=== PATIENT | female | born 2000 | race Caucasian/White ===

== ENCOUNTER 2021-01-28 13:17 | Emergency (ER) | payer BC, OTHER ==
--- NOTE | 2021-01-28 13:49 | EDPHYS ---
Physician Documentation [facility] Name: Peace Ring Age: 20 yrs Sex: Female : 2000 Arrival Date: 01/28/2021 Time: 13:21 Bed 11 Private MD: ED Physician Kory Ham HPI: 01/28 13:49 This 20 yrs old Female presents to ER via Ambulatory with complaints of Jaw pm1 Pain. 13:49 The patient presents with pain, Right jaw area. The problem is located in the lower pm1 right third molar. Onset: The symptoms/episode began/occurred 3 day(s) ago. Duration: The symptoms are continuous. Modifying factors: The symptoms are alleviated by nothing, the symptoms are aggravated by chewing. Associated signs and symptoms: Pertinent positives: Ear pain, Pertinent negatives: fever, inability to eat, nausea, swelling, vomiting. Severity of symptoms: in the emergency department the symptoms are actually worse. Seen at [facility] clinic and was diagnosed with TMJ. Discharged home with steroids and NSAIDs. But reports no improvement in symptoms with medications prescribed. 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/07/2021 kg Historical: - Allergies: 13:28 No Known Allergies; kg - Home Meds: 13:28 Adderall XR 15 mg Oral cp24 1 cap once daily [Active]; hydroxyzine HCl 25 mg Oral tab 1 kg tab [Active]; meloxicam 15 mg oral tab 1 tab once daily [Active]; methylprednisolone 4 mg Oral tab 1 tab once daily [Active]; 13:30 norgestimate-ethinyl estradiol 0.18/0.215/0.25 mg-35 mcg (28) oral tab [Active]; kg - PMHx: 13:30 Anxiety; Depression; polycystic ovarian syndrome; Dyslipidemia; kg - PSHx: 13:30 Hernia repair; kg 13:32 Tubes in ears; Tonsillectomy; kg - Immunization history:: Adult Immunizations not up to date, Client reports having NOT received the Covid vaccine. - Social history:: Smoking status: Reported history of juuling and/or vaping. Patient uses alcohol, occasionally. ROS: 13:49 Constitutional: Negative for fever, chills, and weight loss. pm1 13:49 Neck: Negative for injury, pain, and swelling, Cardiovascular: Negative for chest pain, palpitations, and edema, Respiratory: Negative for shortness of breath, cough, wheezing, and pleuritic chest pain, Abdomen/GI: Negative for abdominal pain, nausea, vomiting, diarrhea, and constipation, MS/Extremity: Negative for injury and deformity, Skin: Negative for injury, rash, and discoloration, Neuro: Negative for headache, weakness, numbness, tingling, and seizure. 13:49 ENT: Positive for dental pain, ear pain, Negative for sore throat, difficulty swallowing, difficulty handling secretions, hoarseness. 13:49 All other systems are negative. Exam: 13:49 Constitutional: This is a well developed, well nourished patient who is awake, alert, pm1 and in no acute distress. Head/Face: Normocephalic, atraumatic. 13:49 Skin: Warm, dry with normal turgor. Normal color with no rashes, no lesions, and no evidence of cellulitis. MS/ Extremity: Pulses equal, no cyanosis. Neurovascular intact. Full, normal range of motion. 13:49 Eyes: Exam is negative for acute changes, Extraocular movements: no acute changes, Conjunctiva: no acute changes, no injection. 13:49 ENT: External ear(s): are unremarkable, Ear canal(s): are normal, TM's: are normal, Mouth: Lips: normal, moist, Oral mucosa: normal, pink and intact, moist, Gums: normal with healthy appearance, No trismus present, Dental exam: abscess, is not appreciated, dental caries, that is moderate, specifically in the lower left third molar (#17) and lower right third molar (#32), pain, specifically in the lower right third molar (#32). 13:49 Neck: Lymph nodes: lymphadenopathy is appreciated, anterior cervical nodes, Right side. 13:49 Cardiovascular: Exam negative for acute changes, Rate: normal, Rhythm: regular, Pulses: no pulse deficits are appreciated. 13:49 Respiratory: Exam negative for acute changes, respiratory distress, shortness of breath. 13:49 Neuro: Exam negative for acute changes, Orientation: is normal, Mentation: is normal, Motor: is normal, moves all fours. Vital Signs: 13:25 BP 121 / 75; Pulse 87; Resp 20; Temp 98.1; Pulse Ox 100% on R/A; Weight 119.29 kg (R); kg Height 5 ft. 2 in. (157.48 cm) (R); Pain 6/10; 13:41 BP 118 / 78; Pulse 82; Resp 18; Pulse Ox 100% ; ch5 13:25 Body Mass Index 48.10 (119.29 kg, 157.48 cm) kg MDM: 13:36 Patient medically screened. pm1 13:47 Data reviewed: vital signs. Data interpreted: Pulse oximetry: on room air is 100 %. pm1 Interpretation: normal. Counseling: I had a detailed discussion with the patient and/or guardian regarding: the historical points, exam findings, and any diagnostic results supporting the discharge/admit diagnosis, the need for outpatient follow up, for definitive care, a dentist, to return to the emergency department if symptoms worsen or persist or if there are any questions or concerns that arise at home. 13:52 ED course: PMPaware reviewed. pm1 Administered Medications: 13:48 Drug: HYDROcodone-acetaminophen 5 mg-325 mg 1 tabs Route: PO; ch5 Disposition: 22:24 Co-signature as Attending Physician, Kory Ham MD. rn Disposition Summary: 01/28/21 13:48 Discharge Ordered Location: Home pm1 Problem: new pm1 Symptoms: have improved pm1 Condition: Stable pm1 Diagnosis - Dental pain pm1 - Dental caries, unspecified pm1 Followup: pm1 - With: Emergency Department - When: As needed - Reason: Worsening of condition Followup: pm1 - With: Private Physician - When: 2 - 3 days - Reason: Recheck today's complaints, Continuance of care, Re-evaluation by your physician Discharge Instructions: - Discharge Summary Sheet pm1 - Dental Pain pm1 Forms: - Medication Reconciliation Form pm1 - Thank You Letter pm1 - Antibiotic Education pm1 - Prescription Opioid Use pm1 - Work release form pm1 Prescriptions: - acetaminophen-codeine 300-15 mg Oral tablet - take 1 tablet by ORAL route every 6 hours As needed as needed; 12 tablet; pm1 Refills: 0, Product Selection Permitted - Amoxicillin 500 mg Oral Capsule - take 1 capsule by ORAL route every 8 hours for 10 days; 30 tablet; Refills: 0, pm1 Product Selection Permitted Signatures: Kory Ham MD MD rn Marinas, Patrick, NP 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
--- NOTE | 2021-01-28 13:49 | ER ---
Nurse's Notes [facility] Name: Peace Ring Age: 20 yrs Sex: Female : 2000 Arrival Date: 01/28/2021 Time: 13:21 Bed 11 Private MD: Diagnosis: Dental pain;Dental caries, unspecified Presentation: 01/28 13:25 Chief complaint: Patient states: Right sided jaw pain x 3 days. Saw her PCP and was kg told its TMJ started her on methylprednisolone and naproxen. Pt stated it hasn't helped and unable to sleep at night.. Coronavirus screen: Vaccine status: Patient reports being unvaccinated. Client denies travel out of the [place] in the last 14 days. At this time, the client does not indicate any symptoms associated with coronavirus-19. Ebola Screen: Patient negative for fever greater than or equal to 101.5 degrees Fahrenheit, and additional compatible Ebola Virus Disease symptoms Patient denies exposure to infectious person. Patient denies travel to an Ebola-affected area in the 21 days before illness onset. Initial Sepsis Screen: Does the patient meet any 2 criteria? No. Patient's initial sepsis screen is negative. Does the patient have a suspected source of infection? No. Patient's initial sepsis screen is negative. Risk Assessment: Do you want to hurt yourself or someone else? Patient reports no desire to harm self or others. Onset of symptoms was January 25, 2021. 13:25 Method Of Arrival: Ambulatory kg 13:25 Acuity: NAVEED 4 kg Triage Assessment: 13:32 General: Appears in no apparent distress. Behavior is calm, cooperative, appropriate kg for age, quiet. Pain: Complains of pain in Right side of Jaw. 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 kg Historical: - Allergies: 13:28 No Known Allergies; kg - Home Meds: 13:28 Adderall XR 15 mg Oral cp24 1 cap once daily [Active]; hydroxyzine HCl 25 mg Oral tab 1 kg tab [Active]; meloxicam 15 mg oral tab 1 tab once daily [Active]; methylprednisolone 4 mg Oral tab 1 tab once daily [Active]; 13:30 norgestimate-ethinyl estradiol 0.18/0.215/0.25 mg-35 mcg (28) oral tab [Active]; kg - PMHx: 13:30 Anxiety; Depression; polycystic ovarian syndrome; Dyslipidemia; kg - PSHx: 13:30 Hernia repair; kg 13:32 Tubes in ears; Tonsillectomy; kg - Immunization history:: Adult Immunizations not up to date, Client reports having NOT received the Covid vaccine. - Social history:: Smoking status: Reported history of juuling and/or vaping. Patient uses alcohol, occasionally. Screenin:33 Abuse screen: Denies threats or abuse. Denies injuries from another. Nutritional kg screening: No deficits noted. Tuberculosis screening: No symptoms or risk factors identified. Fall Risk None identified. Vital Signs: 13:25 BP 121 / 75; Pulse 87; Resp 20; Temp 98.1; Pulse Ox 100% on R/A; Weight 119.29 kg (R); kg Height 5 ft. 2 in. (157.48 cm) (R); Pain 6/10; 13:41 BP 118 / 78; Pulse 82; Resp 18; Pulse Ox 100% ; ch5 13:25 Body Mass Index 48.10 (119.29 kg, 157.48 cm) kg ED Course: 13:21 Patient arrived in ED. ds1 13:28 Triage completed. kg 13:33 Patient has correct armband on for positive identification. kg 13:33 No provider procedures requiring assistance completed. kg 13:36 Macario Fletcher NP is PHCP. pm1 13:36 Kory Ham MD is Attending Physician. pm1 13:40 Jeferson Oliveira RN is Primary Nurse. ch5 13:41 Arm band placed on left wrist. ch5 Administered Medications: 13:48 Drug: HYDROcodone-acetaminophen 5 mg-325 mg 1 tabs Route: PO; ch5 Outcome: 13:48 Discharge ordered by . pm1 14:00 Discharged to home ch5 14:00 Condition: improved 14:00 Discharge instructions given to patient, Instructed on discharge instructions, follow up and referral plans. Prescriptions given X 2. 14:01 Patient left the ED. ch5 Signatures: Shannan Colon ds1 Macario Fletcher NP MANAGER TALENT MANAGEMENT pm1 Amara Salcedo RN RN kg Jeferson Oliveira RN RN 5
[2021-01-28 14:09] VITALS: TEMP 98.1; O2SAT 100
[2021-01-28 14:10] VITALS: BP 118/78
[2021-01-28] MEDS ORDERED: HYDROCODONE/APAP 5/325 MG TAB ONE (14:11)
== END 2021-01-28 14:01 | disposition home or self-care (01) ==
LOC: ER 13:17
DX: K02.9 Dental caries, unspecified (principal); F41.8 Other specified anxiety disorders
CPT/HCPCS: 99283

== ENCOUNTER 2022-11-07 00:16 | Emergency (ER) | payer OTHER ==
--- OUTSIDE RECORDS SUMMARY | 2022-11-07 00:26 | XMS REPORT | Continuity of Care Document ---
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 Date Status Commen ts Source Name Name [facility] 2017-11-20 Completed University of 00:00:00 [facility] Meningococcal 2017-11-20 Completed [facility] of Polysaccharide 00:00:00 [place] [facility] (groups A, C, Y and Branc h W-135) conjugate vaccine (MCV4P) [facility] 2017-11-20 Completed University of 00:00:00 [facility] Meningococcal 2017-11-20 Completed University of Polysaccharide 00:00:00 [place] [facility] (groups A, C, Y and Branc h W-135) conjugate vaccine (MCV4P) [facility] 2017-11-20 Completed University of 00:00:00 [facility] Meningococcal 2017-11-20 Completed University of Polysaccharide 00:00:00 [place] [facility] (groups A, C, Y and Branc h W-135) conjugate vaccine (MCV4P) [facility] 2017-11-20 Completed University of 00:00:00 [facility] Meningococcal 2017-11-20 Completed University of Polysaccharide 00:00:00 [place] [facility] (groups A, C, Y and Branc h W-135) conjugate vaccine (MCV4P) [facility] 2017-11-20 Completed University of 00:00:00 [facility] Meningococcal 2017-11-20 Completed University of Polysaccharide 00:00:00 [place] [facility] (groups A, C, Y and Branc h W-135) conjugate vaccine (MCV4P) [facility] 2017-11-20 Completed University of 00:00:00 [facility] Meningococcal 2017-11-20 Completed University of Polysaccharide 00:00:00 [place] [facility] (groups A, C, Y and Branc h W-135) conjugate vaccine (MCV4P) HPV9 2017-11-20 Completed University of 00:00:00 [facility] Meningococcal 2017-11-20 Completed University of Polysaccharide 00:00:00 [place] [facility] (groups A, C, Y and Branc h W-135) conjugate vaccine (MCV4P) HPV9 2017-11-20 Completed University of 00:00:00 [facility] Meningococcal 2017-11-20 Completed University of Polysaccharide 00:00:00 [place] [facility] (groups A, C, Y and Branc h W-135) conjugate vaccine (MCV4P) [facility] 2017-11-20 Completed University of 00:00:00 [facility] Meningococcal 2017-11-20 Completed University of Polysaccharide 00:00:00 [place] [facility] (groups A, C, Y and Branc h W-135) conjugate vaccine (MCV4P) [facility] 2017-11-20 Completed University of 00:00:00 [facility] Meningococcal 2017-11-20 Completed University of Polysaccharide 00:00:00 [place] [facility] (groups A, C, Y and Branc h W-135) conjugate vaccine (MCV4P) diphtheria/pertussis, 2015-11-06 Completed Maxwell Yang acel/tetanus adult 23:01:00 TDAP 2015-11-06 Completed University of 00:00:00 [facility] TDAP 2015-11-06 Completed University of 00:00:00 [facility] TDAP 2015-11-06 Completed University of 00:00:00 [facility] TDAP 2015-11-06 Completed University of 00:00:00 [facility] TDAP 2015-11-06 Completed University of 00:00:00 [facility] TDAP 2015-11-06 Completed University of 00:00:00 [facility] TDAP 2015-11-06 Completed University of 00:00:00 [facility] TDAP 2015-11-06 Completed University of 00:00:00 [facility] TDAP 2015-11-06 Completed University of 00:00:00 [facility] TDAP 2015-11-06 Completed University of 00:00:00 [facility] Vital Signs Vital Name Observation Time Observation Value Comments Source Systolic blood 2022-10-11 20:38:00 128 mm[Hg] Univer sity of pressure [facility] Diastolic blood 2022-10-11 20:38:00 75 mm[Hg] Unive rsity of pressure [facility] Heart rate 2022-10-11 20:38:00 76 /min [facility] [place] [facility] [place] Body height 2022-10-11 20:38:00 157.5 cm [facility] [place] Body weight 2022-10-11 20:38:00 116.438 kg [facility] BMI 2022-10-11 20:38:00 46.95 kg/m2 Universi ty of [facility] Oxygen saturation in 2022-10-11 20:38:00 98 /min University Arterial blood by [facility] Pulse oximetry Branch Systolic blood 2022-05-14 19:25:00 127 mm[Hg] Univer sity of pressure [facility] [place] Diastolic blood 2022-05-14 19:25:00 78 mm[Hg] Unive rsity of pressure [facility] Heart rate 2022-05-14 19:25:00 73 /min [facility] [place] Body temperature 2022-05-14 19:25:00 37.17 Barbara Univ ersity of [facility] Respiratory rate 2022-05-14 19:25:00 18 /min Univ ersity of [facility] Body height 2022-05-14 19:25:00 157.5 cm [facility] [place] Body weight 2022-05-14 19:25:00 112.492 kg [facility] [place] BMI 2022-05-14 19:25:00 45.36 kg/m2 [facility] Systolic blood 2022-02-27 18:19:00 120 mm[Hg] Univer sity of pressure [facility] Diastolic blood 2022-02-27 18:19:00 78 mm[Hg] Unive rsity of pressure [facility] Branch Heart rate 2022-02-27 18:19:00 71 /min [facility] [place] Body temperature 2022-02-27 18:19:00 37 Barbara Univ [facility] [place] Body height 2022-02-27 18:19:00 157.5 cm [facility] Body weight 2022-02-27 18:19:00 110.678 kg Universi [facility] BMI 2022-02-27 18:19:00 44.63 kg/m2 Universi [facility] Oxygen saturation in 2022-02-27 18:19:00 96 /min University of Arterial blood by [facility] Pulse oximetry Branch Systolic blood 2021-08-31 22:24:00 121 mm[Hg] Univer sity of pressure [facility] Diastolic blood 2021-08-31 22:24:00 64 mm[Hg] Unive rsity of pressure [facility] Heart rate 2021-08-31 22:24:00 88 /min [facility] Body temperature 2021-08-31 22:24:00 37.17 Barbara [facility] Res[facility] 2021-08-31 22:24:00 18 /min [facility] Body height 2021-08-31 22:24:00 157.5 cm [facility] Body weight 2021-08-31 22:24:00 107.956 kg [facility] BMI 2021-08-31 22:24:00 43.53 kg/m2 [facility] Oxygen saturation in 2021-08-31 22:24:00 97 /min [place] of Arterial blood by [facility] Pulse oximetry Branch Respitory Rate 2015-11-06 22:32:00 Memrob al Trey Systolic (mm Hg) 2015-11-06 22:32:00 Dre hansl [place] Diastolic (mm Hg) 2015-11-06 22:32:00 Mem orial [place] Weight 2015-11-06 20:52:00 [facility] [place] Respitory Rate 2015-11-06 20:40:00 Memori al [place] Heart Rate 2015-11-06 20:40:00 [facility] [place] Systolic (mm Hg) 2015-11-06 20:40:00 Dre rial [place] Diastolic (mm Hg) 2015-11-06 20:40:00 Mem orial [place] Procedures Procedure Date / Time Performed Performing Clinician [facility] e ASSIGNMENT OF BENEFITS 2022-05-14 19:22:00 Doctor Unassigned, No [facility] POCT MOLECULAR FLU 2022-02-27 18:53:00 Micaela Angel ty [facility] Encounters Start End Encounter Admission Attending Care Care Encounter Source Date/Time Date/Time Type Type Clinicians Facility Department ID 2021-03-[address] [facility] [id number] [facility] 2022-10-11 2022-10-11 Outpatient R MARK TOMINE [facility] [id number] Univers 15:40:00 16:51:46 MARK TOMINE [facility] 2022-10-11 2022-10-11 [facility] 1.2.840.114 [id number] Univers 15:40:00 16:51:46 Visit [facility] 350.1.13.10 ity of [place] 4.2.7.2.686 Abraham as BACILIO?BLEA [phone] [address] OFFICE [facility] 2022-05-30 2022-05-30 Refill [facility] [id number] Univers 00:00:00 00:00:00 Ricky DONNY 350.1.13.10 i [place] [phone] [address] 2022-05-14 2022-05-14 [facility] [id number] Univers 13:30:00 14:00:00 Visit Ricky HINES 350.1.13.10 i [place] [id number] [address] 2022-05-14 2022-05-[address] [facility] [id number] Univers 13:30:00 13:30:00 RICKY gillespie [facility] 2022-05-14 2022-05-[address] [facility] [id number] Univers 13:30:00 13:30:00 RICKY gillespie [facility] 2022-05-14 2022-05-[address] [facility] [id number] Univers 13:30:00 13:30:00 RICKY gillespie [facility] 2022-05-14 2022-05-14 Orders Doctor CLAUDY 1.2.840.114 [id number] Univers 00:00:00 00:00:00 Only Unassigned, ELHAM 350.1.13.10 ity of [place] [facility] 4.2.7.2.686 Abraham as [phone] [facility] [address] [place] 2022-02-27 2022-02-27 [facility] [id number] Univers 13:00:00 14:32:05 MICAELA gillespie [facility] 2022-02-27 2022-02-27 Office [facility] 1.2.840.114 [id number] Univers 13:00:00 13:30:00 Visit Micaela LEE 350.1.13.10 i ty of [place] 4.2.7.2.686 Abraham as BACILIO?BLEA [id number] [address] MEDICAL OFFICE BUILDING 2021-09-01 2021-09-01 Letter CLAUDY [place] 1.2.840.114 [id number] Univers 00:00:00 00:00:00 (Out) Breann LIZARRAGA 350.1.13.10 it y of [facility] 4.2.7.2.686 Abraham as [id number] [facility] [address] [place] 2021-08-31 2021-08-[address] [facility] [id number] Univers 17:20:00 17:36:10 RAMÍREZ gillespie o f [facility] 2021-08-31 2021-08-31 Urgent Jodi Ricks [facility] 1.2.840.114 [id number] Univers 17:20:00 17:36:10 Care Wanda Ramírez Nano ePrint 350.1.13.10 ity of [place] 4.2.7.2.686 Abraham as BACILIO?BLEA [id number] [facility] [address] [place] MEDICAL OFFICE BUILDING 2021-08-31 2021-08-31 Outpatient [facility] [id number] Univers 17:20:00 17:36:10 RAMÍREZ calverty o f [facility] 2021-08-31 2021-08-31 Orders Doctor CLAUDY 1.2.840.114 [id number] Univers 00:00:00 00:00:00 Only Unassigned, [place] 350.1.13.10 ity of [place] [facility] 4.2.7.2.686 Abraham as [phone] [address] 2021-05-14 2021-05-14 Office Rolanda [facility] [id number] Univers 14:45:00 15:41:39 Visit Ricky TAPIAREINALDO 350.1.13.10 i [place] [id number] Dc noris [facility] 134 [facility] 2021-05-14 2021-05-[address] [facility] [id number] Univers 14:45:00 15:41:39 [facility] 2021-05-14 2021-05-[address] [facility] [id number] Univers 14:45:00 14:45:00 [facility] 2021-05-14 2021-05-14 Orders Doctor CLAUDY 1.2.840.114 [id number] Univers 00:00:00 00:00:00 Only Unassigned, [place] 350.1.13.10 ity of [place] [facility] 4.2.7.2.686 Abraham as [id number] [address] 2021-01-26 2021-01-26 Office [facility] 1.2.840.114 [id number] Univers 16:01:26 16:41:35 Visit [facility] 350.1.13.10 it y of [place] 4.2.7.2.686 Abraham as Bacilio?Blea [phone] Dc noris kateey 044 [facility] Office [facility] 2021-01-26 2021-01-[address] [facility] [id number] Univers 16:00:00 16:00:00 [facility] 2021-01-26 2021-01-26 Letter Bryan [facility] 1.2.840.114 [id number] Univers 00:00:00 00:00:00 (Out) [facility] 350.1.13.10 it y of [place] 4.2.7.2.686 Abraham as Bacilio?Blea [id number] [address] Medical Office [facility] 2021-01-26 2021-01-26 Orders Doctor CLAUDY 1.2.840.114 [id number] Univers 00:00:00 00:00:00 Only Unassigned, [place] 350.1.13.10 ity of [place] [facility] 4.2.7.2.686 Abraham as [id number] [address] 2021-01-09 2021-01-09 Office [facility] 1.2.840.114 [id number] Univers 15:50:53 16:53:20 Visit Bettina [facility] 350.1.13.10 ity of [place] 4.2.7.2.686 Abraham as Bacilio?Blea [phone] [address] Medical Office [facility] 2021-01-09 2021-01-[address] [facility] [id number] Univers 16:00:00 16:00:00 WONDIFUL ity o f [facility] 2021-01-09 2021-01-09 Orders Doctor CLAUDY 1.2.840.114 [id number] Univers 00:00:00 00:00:00 Only Unassigned, [place] 350.1.13.10 ity of [place] [facility] 4.2.7.2.686 Abraham as [id number] [address] 2021-01-09 2021-01-09 Orders Doctor LOCO 1.2.840.114 [id number] Univers 00:00:00 00:00:00 Only Unassigned, [place] 350.1.13.10 ity of [place] [facility] 4.2.7.2.686 Abraham as [id number] [address] 2020-10-17 2020-10-17 Office Rolanda [facility] [id number] Univers 14:51:49 15:43:20 Visit Ricky Donny 350.1.13.10 i ty of [place] [phone] [facility] 134 [facility] 2020-10-17 2020-10-[address] [facility] [id number] Univers 14:45:00 14:45:00 RICKY nehalbarb of [facility] 2020-10-04 2020-10-04 Telephone Rolanda [facility] 1.2.840.114 [id number] Univers 00:00:00 00:00:00 Ricky Hines 350.1.13.10 i [place] [id number] [facility] 134 [facility] 2020-07-25 2020-07-25 Patient Regan [facility] 1.2.840.114 [id number] Univers 00:00:00 00:00:00 Outreach Karlos DOMINGUEZ 350.1.13.10 i ty of [place] [facility] [place].2.7.2.[place] [phone] [facility] [address] [place] 2020-06-23 2020-06-23 Office [facility] 1.2.840.114 [id number] Univers 10:50:09 11:47:31 Visit Bettina Lee 350.1.13.10 itbarb of [place] 4.2.7.2.686 Abraham as Professio [phone] [facility] 044 [facility] 2020-06-23 2020-06-[address] [facility] [id number] Univers 10:45:00 10:45:00 WONDIFUL ity o f [facility] 2020-06-23 2020-06-23 Patient Praful [facility] 1.2.840.114 [id number] Univers 00:00:00 00:00:00 Outreach Chantal Lee 350.1.13.10 i ty of [place] 4.2.7.2.686 Abraham as Professio [phone] [facility] 044 [facility] 2020-05-10 2020-05-10 Office Rolanda [facility] [id number] Univers 15:42:37 16:23:07 Visit Ricky Hines 350.1.13.10 i ty of [place] [id number] [facility] 134 [facility] 2020-05-10 2020-05-[address] [facility] [id number] Univers 15:30:00 15:30:00 RICKY [facility] 2020-05-10 2020-05-10 Orders Doctor CLAUDY 1.2.840.114 [id number] Univers 00:00:00 00:00:00 Only Unassigned, [place] 350.1.13.10 ity of [place] [facility] 4.2.7.2.686 Abraham as [id number] [facility] [address] [place] 2020-04-23 2020-04-23 Refill [facility] [id number] Univers 00:00:00 00:00:00 Rickykatlyn Hines 350.1.13.10 i ty of [place] [phone] [facility] 134 [facility] 2020-04-17 2020-04-17 [facility] [id number] Univers 08:30:00 08:30:00 [facility] 2019-11-17 2019-11-17 Urgent Provider, [facility] Care [facility] 1.2.840.114 [id number] Univers 11:33:42 11:53:42 Care Sara Adams [facility] 350.1.13.10 ity of [place] 4.2.7.2.686 Abraham as Professio [phone] [facility] [address] [place] Office Building One 2019-11-17 2019-11-[address] [facility] [id number] Univers 11:40:00 11:40:00 ity [facility] 2019-10-30 2019-10-30 Emergency Ketan [facility] 1.2.840.114 [id number] Univers 17:11:13 17:33:00 Kamar Hines 350.1.13.10 i ty of [place] [phone] [facility] [address] [place] 2019-10-30 2019-10-30 Nurse Brenna Padilla 1.2.840.114 [id number] Univers 00:00:00 00:00:00 Triage [place] 350.1.13.10 it y of HOSPITAL 4.2.7.2.686 Abraham as [phone] [facility] [address] [place] 2019-10-30 2019-10-30 Orders Doctor CLAUDY 1.2.840.114 [id number] Univers 00:00:00 00:00:00 Only Unassigned, [place] 350.1.13.10 ity of [place] [facility] 4.2.7.2.686 Abraham as [phone] [facility] [address] [place] 2019-07-05 2019-07-05 Office [facility] [id number] [facility] 13:42:12 14:34:39 Visit Ricky Donny 350.1.13.10 i ty of [place] [id number] Dc dical nal 134 [facility] 2019-07-05 2019-07-[address] [facility] [id number] Univers 13:30:00 13:30:00 RICKY nehalbarb [facility] 2018-12-04 2018-12-04 Office [facility] [id number] Univers 08:47:30 09:02:30 Visit Olga Lidia Sommer ALBERTO 350.1.13.10 ity of [facility] 4.2.7.2.686 [place] FUN[place]ILAY[place] [id number] Dc dical [address] 2015-11-06 2015-11-06 [facility] [id number] Memoria 20:40:00 23:56:00 Emergency r [place] 00 l [facility] 2015-11-06 2015-11-06 Outpatient Tim [facility] [id number] 15:40:00 18:56:00 Myrtle Crawford 00 Results Test Description Test Time Test Comments Results Result Comments Source POCT MOLECULAR FLU 2022-02-27 18:58:28 Test Item Value Reference Range Interpretation Comme nts POCT Molecular FluA (test code = 41936-9) Positive Negative A Lab Interpretation (test code = 90670-1) Abnormal [id number] 18:58:28 Test Item Value Reference Range Interpretation Comments POCT Molecular FluA (test code = Positive Negative A 34201-0) Lab Interpretation (test code = Abnormal 56012-1) [facility] [id number] 20:55:00 Test Item Value Reference Range Interpretation Comments Antibody Scrn (test Negative (11/06/15 3:55 code = Antibody Scrn) PM) [facility] [employer] [id number] 20:55:00 Test Item Value Reference Range Interpretation Comments ABO/Rh (test code = ABO/Rh) O POS [facility] [employer] [id number] 20:54:00 Test Item Value Reference Range Interpretation Comments Albumin Lvl (test code = Albumin Lvl) 3.7 3.5-5.0 [facility] [employer] [id number] 20:54:00 Test Item Value Reference Range Interpretation Comments Globulin (test code = Globulin) 3.9 2.0-4.0 [employer]2016-07-04 20:54:00 Test Item Value Reference Range Interpretation Comments Total Protein (test code = Total 7.6 6.4-8.4 Protein) [facility] [employer] [id number] 20:54:00 Test Item Value Reference Range Interpretation Comments A/G Ratio (test code = A/G Ratio) 0.9 0.7-1.6 [facility] [employer] [id number] 20:54:00 Test Item Value Reference Range Interpretation Comments ALT (test code = ALT) 53 See_Comment [Auto mated message] The system which ge nerated this result transmit justo reference range : <=65. The reference range was not used to interpr et this result as uday l/abnormal. [employer]2016-07-04 20:54:00 Test Item Value Reference Range Interpretation Comments AST (test code = AST) 29 See_Comment [Auto mated message] The system which ge nerated this result transmit justo reference range : <=37. The reference range was not used to interpr et this result as uday l/abnormal. [employer]2016-07-04 20:54:00 Test Item Value Reference Range Interpretation Comments Alk Phos (test code = Alk Phos) 76 39-136 [facility]2016-07-04 20:54:00 Test Item Value Reference Range Interpretation Comments Bili Total (test code = Bili Total) 0.4 0.2-1.3 [facility]2016-07-04 20:54:00 Test Item Value Reference Range Interpretation Comments Bili Direct (test code 0.1 See_Comment [Aut omated message] The = Bili Direct) system which generated this result tra nsmitted reference range : <=0.3. The reference r gisselle was not used to int erpret this result as uday l/abnormal. [facility]2016-07-04 20:54:00 Test Item Value Reference Range Interpretation Comments Bili Indirect (test 0.3 See_Comment [Automa justo message] The code = Bili Indirect) system which generated this result tra nsmitted reference range : <=1.0. The reference r gisselle was not used to int erpret this result as normal/abnormal . [facility]2016-07-04 20:54:00 Test Item Value Reference Range Interpretation Comments eGFR (test code = eGFR) See Comment [facility]2016-07-04 20:54:00 Test Item Value Reference Range Interpretation Comments Glucose Lvl (test code = Glucose Lvl) 104 70-99 [facility]2016-07-04 20:54:00 Test Item Value Reference Range Interpretation Comments BUN (test code = BUN) 12 7-22 [facility]2016-07-04 20:54:00 Test Item Value Reference Range Interpretation Comments Creatinine Lvl (test code = Creatinine 0.76 0.50-1.40 Lvl) [facility]2016-07-04 20:54:00 Test Item Value Reference Range Interpretation Comments Potassium Lvl (test code = Potassium 4.0 3.5-5.1 Lvl) [facility]2016-07-04 20:54:00 Test Item Value Reference Range Interpretation Comments Sodium Lvl (test code = Sodium Lvl) 133 135-145 [facility]2016-07-04 20:54:00 Test Item Value Reference Range Interpretation Comments AGAP (test code = AGAP) 12.0 10.0-20.0 [facility]2016-07-04 20:54:00 Test Item Value Reference Range Interpretation Comments CO2 (test code = CO2) 23 24-32 [facility]2016-07-04 20:54:00 Test Item Value Reference Range Interpretation Comments Calcium Lvl (test code = Calcium Lvl) 8.7 8.5-10.5 [facility]2016-07-04 20:54:00 Test Item Value Reference Range Interpretation Comments Chloride Lvl (test code = Chloride Lvl) 102 95-109 [facility] [facility]2016-[facility]-04 20:54:00 Test Item Value Reference Range Interpretation Comments Lipase Lvl (test code = Lipase Lvl) 70 73-393 [facility]J[id number] 20:54:00 Test Item Value Reference Range Interpretation Comments Eosinophils # (test code 0.3 See_Comment [A utomated message] The = Eosinophils #) system whic h generated this result tra nsmitted reference range : <=0.5. The reference r gisselle was not used to int erpret this result as normal/abnormal . [facility] Hospit[id number] 20:54:00 Test Item Value Reference Range Interpretation Comments Lymphocytes # (test code = Lymphocytes 2.6 1.0-5.5 #) [facility] Hospit[id number] 20:54:00 Test Item Value Reference Range Interpretation Comments Monocytes # (test code 0.9 See_Comment [Aut omated message] The = Monocytes #) system which generated this result tra nsmitted reference range : <=0.8. The reference r gisselle was not used to int erpret this result as normal/abnormal . [facility] HospitalVlrjqeeUCJBRNUBUY1879-88-76 20:54:00 Test Item Value Reference Range Interpretation Comments Monocytes (test code = Monocytes) 8.8 2.0-12.0 [facility] HospitalBgzuuavYDNLJHHQRL3043-34-83 20:54:00 Test Item Value Reference Range Interpretation Comments Lymphocytes (test code = Lymphocytes) 25.9 20.0-40.0 [facility] Hospit[id number] 20:54:00 Test Item Value Reference Range Interpretation Comments Segs-Bands # (test code = Segs-Bands #) 6.3 1.5-8.1 [facility] Hospit[id number] 20:54:00 Test Item Value Reference Range Interpretation Comments Basophils (test code = 0.5 See_Comment [Aut omated message] The Basophils) system which ge nerated this result tra nsmitted reference range : <=1.0. The reference r gisselle was not used to int erpret this result as normal/abnormal . [facility] Hospit[id number] 20:54:00 Test Item Value Reference Range Interpretation Comments Eosinophils (test code = 2.8 See_Comment [A utomated message] The Eosinophils) system which ge nerated this result tra nsmitted reference range : <=4.0. The reference r gisselle was not used to int erpret this result as normal/abnormal . [facility] HospitalBnalrxtKGUOTGRNTA1685-07-73 20:54:00 Test Item Value Reference Range Interpretation Comments Segs (test code = Segs) 62.0 45.0-75.0 [facility] HospitalOjzjxpiTFNZIHWOKV4722-56-03 20:54:00 Test Item Value Reference Range Interpretation Comments Basophils # (test code 0.1 See_Comment [Aut omated message] The = Basophils #) system which generated this result tra nsmitted reference range : <=0.2. The reference r gisselle was not used to int erpret this result as normal/abnormal . [facility] HospitalQghtptcOPBNOGLVFR7579-66-60 20:54:00 Test Item Value Reference Range Interpretation Comments Estimated % Lysis Rapid 0.9 See_Comment [Au tomated message] The (test code = Estimated syste m which generated % Lysis Rapid) this result t ransmitted reference range : <=7.5. The reference r gisselle was not used to int erpret this result as normal/abnormal . [facility] HospitalTbyjxriOIJOBQFBBX1053-06-73 20:54:00 Test Item Value Reference Range Interpretation Comments G-value Rapid (test code = G-value 12.9 5.0-11.6 Rapid) [facility] HospitalGeqexieRIBQTHWNWC7024-69-77 20:54:00 Test Item Value Reference Range Interpretation Comments Max Amplitude Rapid (test code = Max 72 mm 52-71 Amplitude Rapid) [facility] HospitalDkguljlOULQPBNFFD9735-76-74 20:54:00 Test Item Value Reference Range Interpretation Comments Angle Rapid (test code = Angle 73 degrees 64-80 Rapid) [facility] HospitalKyikipdJGMZZFAYYS9657-08-93 20:54:00 Test Item Value Reference Range Interpretation Comments Split Point Rapid (test code = Split 0.7 min Point Rapid) [facility] HospitalOcdrpanAVDWUBWIIS3293-13-50 20:54:00 Test Item Value Reference Range Interpretation Comments ACT (TEG) Rapid (test code = ACT (TEG) 136 s 86-118 Rapid) [facility] HospitalHpykakaEJRQJUCQBW0047-88-45 20:54:00 Test Item Value Reference Range Interpretation Comments K-time Rapid (test code = K-time 1.3 min 0.6-2.3 Rapid) [facility] HospitalFjiydufWETQXVMWJX1507-08-95 20:54:00 Test Item Value Reference Range Interpretation Comments R-time Rapid (test code = R-time 0.9 min 0.4-0.7 Rapid) [facility] HospitalOcciqtwYBYWKYPYVG9231-35-44 20:54:00 Test Item Value Reference Range Interpretation Comments RDW (test code = RDW) 13.6 11.5-14.5 [facility] HospitalOulctmvKQDGZHBLRF2474-66-76 20:54:00 Test Item Value Reference Range Interpretation Comments MCV (test code = MCV) 86.9 80.0-98.0 [facility] HospitalRszdcunWXVVVNOEFA2583-24-73 20:54:00 Test Item Value Reference Range Interpretation Comments MCH (test code = MCH) 29.3 pg 27.0-31.0 [facility] HospitalLdynpgeSAFPILBZHM3576-36-20 20:54:00 Test Item Value Reference Range Interpretation Comments Platelet (test code = Platelet) 283 133-450 [facility] HospitalByxuwteMLWHRANNZA2673-99-79 20:54:00 Test Item Value Reference Range Interpretation Comments MPV (test code = MPV) 8.9 7.4-10.4 [facility] HospitalRqxcfgiGPDCCXPHNK7821-46-63 20:54:00 Test Item Value Reference Range Interpretation Comments MCHC (test code = MCHC) 33.8 32.0-36.0 [facility] HospitalMfccvhwBQLFYLHMCL7262-74-46 20:54:00 Test Item Value Reference Range Interpretation Comments Hgb (test code = Hgb) 13.4 12.0-16.0 [facility] HospitalNancunhKHVXLFBHEH2675-36-94 20:54:00 Test Item Value Reference Range Interpretation Comments Hct (test code = Hct) 39.7 36.0-48.0 [facility] HospitalRzinarsKTYJPKECIC3295-57-59 20:54:00 Test Item Value Reference Range Interpretation Comments RBC (test code = RBC) 4.57 4.20-5.40 [facility] HospitalZwlghinOMVZJVQDYJ7658-28-68 20:54:00 Test Item Value Reference Range Interpretation Comments WBC (test code = WBC) 10.2 3.7-10.4 [facility] HospitalWwizabdNHVERCLLLF5957-46-68 20:54:00 Test Item Value Reference Range Interpretation Comments PTT (test code = PTT) 23.4 s 22.9-35.8 [facility] HospitalUnzohmtHUQBKYVPBK0423-99-72 20:54:00 Test Item Value Reference Range Interpretation Comments INR (test code = INR) 0.92 1 0.85-1.17 [facility] HospitalRxwzcijHODMQWCRCI6466-94-07 20:54:00 Test Item Value Reference Range Interpretation Comments PT (test code = PT) 12.7 s 12.0-14.7 [facility] Notes Date/Time Note Provider Source 2015-11-06 EXAM: XR RIGHT HAND 3 VIEWS [facility] 18:13:00-00:00 DATE: 11/06/2015 5:52 PM CDT Cente r INDICATION: Pain Post Trauma COMPARISON: None available TECHNIQUE: PA, lateral and oblique radiographs of the right hand FINDINGS: No fracture, periosteal reaction, or erosions id entified. Joint alignment is normal. Soft tissues are unremarkable. IMPRESSION: No acute findings identified. 2015-11-06 EXAM: CT CERVICAL SPINE WITHOUT CONTRAST [facility] 16:10:00-00:00 DATE: 11/06/2015 3:57 PM CDT Cente r INDICATION: Pain, Trauma COMPARISON: None available TECHNIQUE: Axial images through the cervical spine were obt ained. Sagittal and coronal reformatted images were per formed. DLP: 1512 FINDINGS: Posterior aspect of the sphe noid bone demonstrates multifocal lucencies with narrow zone of transition. No cortical breakthrough, pe riosteal reaction, or aggressive features identified. No spondylolisthesis present. Vertebral body heights are normal. No cervical spine fracture is identified. Corticated ossicle adjacent to the left C6 super ior articular facet noted. No prevertebral soft tissue edema or hematoma is observed. IMPRESSION: No cervical spine fracture is identified. Nonaggressive appearing lucent lesion in the sph enoid bone. Differential possibilities include fibrous dyspl masha. Recommend follow-up imaging surveillance. 2015-11-06 EXAM: CT HEAD WITHOUT CONTRAST [facility] [place] [place] 16:10:00-00:00 DATE: 11/06/2015 420 PM CDT Center INDICATION: 15 years old Female patient with his tory of Head trauma. TECHNIQUE: Multiple axial im ages were obtained through the head from vertex to the skull base. Axial bone algorithm reconstruction images are provided. Sagittal and coronal reconstruction images were also provided. COMPARISON: None. FINDINGS: No definite evidence of cere bral edema, mass effect, midline shift is seen. There is no intracranial hemorrhage. Ventricles are normal in siz e and configuration. No pathological extra-axial fluid collection is seen. Basal cisterns are well pres erved. There is no evidence of downward herniation. There is mild right parietal scalp soft tissue swelling/hematoma without underlying skull fracture. Visualized paranasal sinuses are clear. Mastoid air cells are well aerated. Visualized orbits appear grossly unremarkable. IMPRESSION: 1. No acute intracranial abnormality. 2. Mild right parietal scalp soft tissue swelling/hematoma without underlying skull fracture. These findings are in agreem ent with preliminary report made by internal combustion engine inspector physician vice president: Creator: Akua Joseph e: Nov 06, 2015 16:44:04 Subject: No intracranial injury. Right occiptial scalp contusion. 2015-11-06 EXAM: CT ABDOMEN AND PELVIS WITH CONTRAST [facility] 16:10:00-00:00 DATE: 11/06/2015 3:57 PM T Cente r INDICATION: Pain after trauma COMPARISON: None. TECHNIQUE: Volumetric CT acq uisition of the abdomen and pelvis after the intravenous administration contrast. Axial, coronal and sagittal reconstructions. IV contrast: 98 mL Visipaque 320 Oral contrast: None DLP: 2534 mGy-cm FINDINGS: Lines and tubes: None. Lower thorax: Lungs are clear without pleural fluid or pneumot horax. Small fat-containing left posterior diaphragmati c hernia noted. Liver: No evidence of injury. Fatty change of th e liver is present. Biliary tree: No intra- or extrahepatic biliary ductal dilation. Gallbladder: No evidence of injury Pancreas: Normal. Spleen: Normal. Adrenals: Normal. Kidneys and ureters: Normal without evidence of injury Bladder: Normal. Reproductive organs: No CT abnormality. Gastrointestinal tract: Normal caliber. Peritoneum and retroperitone um: No ascites or free air. No other fluid collection. Lymph nodes: Normal. Vasculature: Normal. Bones: No fracture of the spine or other bony structure s. Bilateral L5 pars interarticularis defects witho ut spondylolisthesis. Soft tissues: Normal. IMPRESSION: No evidence of injury in the abdomen and pelvis. Fatty change of the liver. Bilateral L5 spondylolysis. 2015-11-06 EXAM: XR CHEST 1 VIEW [facility] 16:06:00-00:00 DATE: 11/06/2015 at 1606 hours C enter INDICATION: Pain Post Trauma COMPARISON: None TECHNIQUE: AP chest FINDINGS: The heart and medi astinum are normal. The lungs are underinflated and clear. No consolidation, pleural effusion or pneumothorax is seen. The soft tissues and bony structures are unremarkable. IMPRESSION: Underinflation with clear lungs.
[2022-11-07] MEDS ORDERED: IBUPROFEN 400 MG TAB ONE (01:28)
--- NOTE | 2022-11-07 02:21 | EDPHYS ---
Physician Documentation [facility] Name: Peace Ring Age: 22 yrs Sex: Female : 2000 Arrival Date: 11/07/2022 Time: 00:16 Bed 6 Private MD: ED Physician Timo Dodson HPI: 11/07 01:28 This 22 yrs old Female presents to ER via Ambulatory with complaints of Hand Injury. sb4 01:28 The patient or guardian reports injury. The complaints affect the dorsal aspect of sb4 proximal phalanx of left index finger. Context: The problem was sustained at work, resulted from a crush injury, by a heavy object. Onset: The symptoms/episode began/occurred 4 day(s) ago. Modifying factors:. patient was at work when a wooden window cover fell onto her left hand. she reports pain with ROM and at rest. no decreased ROM, numbness, tingling, decreased strength. Historical: - PMHx: 00:47 Anxiety; Depression; Diabetes - NIDDM; dyslipidemia; polycystic ovarian syndrome; kd3 - PSHx: 00:47 hernia repair; Tonsillectomy; tubes in Ears; kd3 - Immunization history:: Adult Immunizations up to date. - Social history:: Smoking status: Reported history of juuling and/or vaping. ROS: 01:28 Constitutional: Negative for fever, chills, and weight loss, Eyes: Negative for injury, sb4 pain, redness, and discharge, ENT: Negative for injury, pain, and discharge, Abdomen/GI: Negative for abdominal pain, nausea, vomiting, diarrhea, and constipation, Back: Negative for injury and pain, Skin: Negative for injury, rash, and discoloration. 01:28 MS/extremity: Positive for injury or acute deformity, swelling. Exam: 01:28 Constitutional: This is a well developed, well nourished patient who is awake, alert, sb4 and in no acute distress. Head/Face: Normocephalic, atraumatic. Eyes: Extra-ocular motions intact. Periorbital areas with no swelling, redness, or edema. Cardiovascular: Regular rate and rhythm with a normal S1 and S2. Respiratory: Lungs have equal breath sounds bilaterally, clear to auscultation and percussion. No rales, rhonchi or wheezes noted. No increased work of breathing, no retractions or nasal flaring. Abdomen/GI: Soft, non-tender, no distension. Back: No spinal tenderness. No costovertebral tenderness. Full range of motion. Skin: Warm, dry with normal turgor. Normal color with no rashes, no lesions, and no evidence of cellulitis. 01:28 Musculoskeletal/extremity: Extremities: grossly normal except: noted in the dorsal aspect of proximal phalanx of left index finger and palmar aspect of proximal phalanx of left index finger: ROM: intact in all extremities, Circulation is intact in all extremities. Sensation intact. Vital Signs: 00:44 BP 118 / 92; Pulse 62; Resp 16; Temp 97.5; Pulse Ox 100% on R/A; Weight 116.12 kg; kd3 02:16 BP 103 / 74; Pulse 68; Resp 15 S; Pulse Ox 100% on R/A; lg3 MDM: 00:27 Patient medically screened. sb4 01:28 Differential diagnosis: dislocation, closed fracture, contusion, superficial injury. sb4 02:22 Data reviewed: vital signs, nurses notes, radiologic studies, plain films. Independent sb4 interpretation of the following test(s) in the Emergency Department X-Ray: My interpretation is my interpretation of the xray images, left hand- no acute fracture. 02:22 Data reviewed: and as a result, I will discharge patient. sb4 11/07 00:43 Order name: Hand Left 3 View XRAY sb4 Administered Medications: 01:21 Drug: Ibuprofen PO 800 mg Route: PO; lg3 02:25 Follow up: Response: No adverse reaction; Marked relief of symptoms rv Disposition: 06:57 Co-signature as Attending Physician, Timo Dodson MD I agree with the assessment sp4 and plan of care. I reviewed the patient's care provided by the Advanced Practice Provider and agree with the diagnosis and treatment plan. Disposition Summary: 11/07/22 02:20 Discharge Ordered Location: Home sb4 Problem: an ongoing problem sb4 Symptoms: are unchanged sb4 Condition: Stable sb4 Diagnosis - Crushing injury of left hand, initial encounter sb4 Followup: sb4 - With: Private Physician - When: As needed - Reason: Recheck today's complaints, Re-evaluation by your physician Discharge Instructions: - Discharge Summary Sheet sb4 - Crush Injury of the Hand, [id number]-ml-[id number] sb4 Forms: - Medication Reconciliation Form sb4 - Thank You Letter sb4 - Antibiotic Education sb4 - Prescription Opioid Use sb4 - [email or web address] sb4 Signatures: Dispatcher [employer] EDMS Nicole Mcdonald, RN RN lg3 Sahara Ortega RN RN kd3 Ara Clark, PAMolly CARTER sb4 Timo Dodson MD MD sp4 Hira Dumont RN rv Corrections: (The following items were deleted from the chart) 01:32 01:28 patient was at work when a wooden window cover fell onto her left hand. she sb4 reports pain with ROM and at rest. no decreased ROM, numbness, tingling, decreased strength. sb4
--- NOTE | 2022-11-07 02:21 | ER ---
Nurse's Notes [facility] Name: Peace Ring Age: 22 yrs Sex: Female : 2000 Arrival Date: 11/07/2022 Time: 00:16 Bed 6 Private MD: Diagnosis: Crushing injury of left hand, initial encounter Presentation: 11/07 00:44 Chief complaint: Patient states: On Friday i got injured at work. A wooden cover fell kd3 into it and it is very swollen and hurts to move. Coronavirus screen: Vaccine status: Patient reports being unvaccinated. Ebola Screen: No symptoms or risks identified at this time. Initial Sepsis Screen: Does the patient meet any 2 criteria? No. Patient's initial sepsis screen is negative. Does the patient have a suspected source of infection? No. Patient's initial sepsis screen is negative. Risk Assessment: Do you want to hurt yourself or someone else? Patient reports no desire to harm self or others. Onset of symptoms was November 07, 2022. 00:44 Method Of Arrival: Ambulatory kd3 00:44 Acuity: NAVEED 4 kd3 Triage Assessment: 00:48 General: Appears in no apparent distress. Behavior is calm, cooperative. Pain: kd3 Complains of pain in left hand. Musculoskeletal: Circulation, motion, and sensation intact. Injury Description: Abrasion sustained to left hand. Historical: - PMHx: 00:47 Anxiety; Depression; Diabetes - NIDDM; dyslipidemia; polycystic ovarian syndrome; kd3 - PSHx: 00:47 hernia repair; Tonsillectomy; tubes in Ears; kd3 - Immunization history:: Adult Immunizations up to date. - Social history:: Smoking status: Reported history of juuling and/or vaping. Screenin:22 [facility] ED Fall Risk Assessment (Adult) History of falling in the last 3 months, lg3 including since admission No falls in past 3 months (0 pts). Abuse screen: Denies threats or abuse. Denies injuries from another. Nutritional screening: No deficits noted. Tuberculosis screening: No symptoms or risk factors identified. Assessment: 01:22 General: Appears in no apparent distress. comfortable, Behavior is calm, cooperative. lg3 Pain: Complains of pain in left hand Pain does not radiate. Pain currently is 5 out of 10 on a pain scale. Neuro: No deficits noted. [place] Agitation-Sedation Scale (RASS): 0 - Alert and Calm Level of Consciousness is awake, alert, obeys commands, Oriented to person, place, time, situation. Cardiovascular: No deficits noted. Denies chest pain, shortness of breath, Capillary refill < 3 seconds Clubbing of nail beds is absent JVD is absent Patient's skin is warm and dry. Respiratory: No deficits noted. Airway is patent Respiratory effort is even, unlabored, Respiratory pattern is regular, symmetrical. GI: No deficits noted. No signs and/or symptoms were reported involving the gastrointestinal system. Abdomen is round non-distended, obese. : No deficits noted. No signs and/or symptoms were reported regarding the genitourinary system. EENT: No deficits noted. No signs and/or symptoms were reported regarding the EENT system. Derm: No deficits noted. Skin is intact, is healthy with good turgor, Skin is dry, Skin is normal, Skin temperature is warm. Musculoskeletal: No deficits noted. Circulation, motion, and sensation intact. Range of motion: intact in all extremities, Swelling present in left hand Reports pain in left hand. 02:16 Reassessment: Patient appears in no apparent distress at this time. No changes from lg3 previously documented assessment. Patient and/or family updated on plan of care and expected duration. Pain level reassessed. Patient is alert, oriented x 3, equal unlabored respirations, skin warm/dry/pink. Vital Signs: 00:44 BP 118 / 92; Pulse 62; Resp 16; Temp 97.5; Pulse Ox 100% on R/A; Weight 116.12 kg; kd3 02:16 BP 103 / 74; Pulse 68; Resp 15 S; Pulse Ox 100% on R/A; lg3 ED Course: 00:20 Patient arrived in ED. ja2 00:27 Ara Clark PA-C is PHCP. sb4 00:27 Timo Dodson MD is Attending Physician. sb4 00:47 Triage completed. kd3 00:48 Arm band placed on right wrist. kd3 01:07 Hand Left 3 View XRAY In Process Unspecified. EDMS 01:22 Patient has correct armband on for positive identification. Placed in gown. Bed in low lg3 position. Call light in reach. Side rails up X 1. Client placed on continuous cardiac and pulse oximetry monitoring. NIBP monitoring applied. Door closed. Noise minimized. Warm blanket given. 01:31 Hira Dumont, RN is Primary Nurse. rv 02:25 No provider procedures requiring assistance completed. Patient did not have IV access rv during this emergency room visit. Administered Medications: 01:21 Drug: Ibuprofen PO 800 mg Route: PO; lg3 02:25 Follow up: Response: No adverse reaction; Marked relief of symptoms rv Medication: 02:25 VIS not applicable for this client. rv Outcome: 02:20 Discharge ordered by . sb4 02:25 Discharged to home ambulatory. rv 02:25 Condition: good 02:25 Discharge instructions given to patient, Instructed on discharge instructions, follow up and referral plans. Demonstrated understanding of instructions, follow-up care. 02:26 Patient left the ED. rv Signatures: Dispatcher [employer] EDMS Hira Dumont, RN RN rv Nicole Mcdonald RN RN lg3 Olga Lidia Reed Kyli RN RN kd3 Ara Clark, PA-C PA-C sb4
[2022-11-07 02:31] VITALS: TEMP 97.5; O2SAT 100
[2022-11-07 02:32] VITALS: BP 103/74
--- NOTE | 2022-11-08 06:45 | RAD REPORT ---
EXAM DESCRIPTION: Hand Left 3 View 11/07/2022 2:10 AM CDT CLINICAL HISTORY: 22 years, Female, SMASH INJURY COMPARISON: None FINDINGS: 3 X-ray views of the left hand (Frontal, lateral and oblique views) were performed. No acute bony injuries were demonstrated. No gross articular or soft tissue abnormality is identifi ed. There are no gross intraosseous lesions. No periosteal reaction were seen. IMPRESSION: No acute bony injuries were demonstrated. Electronically signed by: Reynaldo Dotson MD 11/07/2022 2:11 AM CDT Due to temporary technical issues with the PACS/Fluency reporting system, reports are being signed by the in house radiologists without review as a courtesy to insure prompt reporting. The interpreting radiologist is fully responsible for the content of the report.
== END 2022-11-07 02:26 | disposition home or self-care (01) ==
LOC: ER 00:16
DX: S67.22XA Crushing injury of left hand, initial encounter (principal)
CPT/HCPCS: 99283

== ENCOUNTER 2023-09-29 08:31 | Emergency (ER) | payer OTHER ==
[2023-09-29] MEDS ORDERED: IBUPROFEN 400 MG TAB ONE (09:16)
[2023-09-29] MEDS ORDERED: BENZONATATE 100 MG CAP PO ONE (09:19)
[2023-09-29 09:45] LABS: SARS-CoV-2 Antigen CONTROL BLUE LINE VIS/BG OK; SARS-CoV-2 Antigen Rapid Res Negative (Negative)
--- NOTE | 2023-09-29 10:11 | ER ---
Nurse's Notes [facility] Name: Peace Ring Age: 23 yrs Sex: Female : 2000 Arrival Date: 09/29/2023 Time: 08:31 Bed 20 Private MD: Diagnosis: Otitis media, unspecified, bilateral;Cough;Acute pharyngitis, unspecified Presentation: 09/28 08:40 Chief complaint: Patient states: Cough, R ear pain since Friday. Coronavirus screen: ll1 Client denies travel out of the [place] in the last 14 days. congestion, cough unrelated to allergies, difficulty breathing, headache, shortness of breath, Client presents with at least one sign or symptom that may indicate coronavirus-19. Standard/surgical mask placed on the client. Ebola Screen: Patient denies travel to an Ebola-affected area in the 21 days before illness onset. Initial Sepsis Screen: Does the patient meet any 2 criteria? No. Patient's initial sepsis screen is negative. Does the patient have a suspected source of infection? No. Patient's initial sepsis screen is negative. Risk Assessment: Do you want to hurt yourself or someone else? Patient reports no desire to harm self or others. Onset of symptoms was September 26, 2023. 08:40 Method Of Arrival: Ambulatory ll1 08:40 Acuity: NAVEED 4 ll1 Triage Assessment: 08:51 General: Appears in no apparent distress. Behavior is calm, cooperative, appropriate ll1 for age. General: Reports fever for fatigue for. Pain: Complains of pain in right ear Pain currently is 8 out of 10 on a pain scale. Quality of pain is described as aching. EENT: Reports pain in right ear. Neuro: Reports headache. Respiratory: Reports shortness of breath cough that is labored breathing pain with cough. Historical: - Allergies: 08:46 No Known Drug Allergies; ll1 - PMHx: 08:46 Depression; Diabetes - NIDDM; Anxiety; dyslipidemia; polycystic ovarian syndrome; ll1 - PSHx: 08:46 hernia repair; Tonsillectomy; tubes in Ears; Cholecystectomy; ll1 - Immunization history:: Adult Immunizations up to date. - Infectious Disease History:: Denies. - Social history:: Smoking status: Reported history of juuling and/or vaping. Screenin:24 [facility] ED Fall Risk Assessment (Adult) History of falling in the last 3 months, ll1 including since admission No falls in past 3 months (0 pts) Confusion or Disorientation No (0 pts) Intoxicated or Sedated No (0 pts) Impaired Gait No (0 pts) Mobility Assist Device Used No (0 pt) Altered Elimination No (0 pt) Score/Fall Risk Level 0 - 2 = Low Risk Maintained a safe environment, Hourly rounding (assess needs \T\ fall precautionary measures) done. Abuse screen: Denies threats or abuse. Nutritional screening: No deficits noted. Tuberculosis screening: No symptoms or risk factors identified. Assessment: 09:22 Reassessment: No changes from previously documented assessment. Patient and/or family ll1 updated on plan of care and expected duration. Pain level reassessed. Patient is alert, oriented x 3, equal unlabored respirations, skin warm/dry/pink. Vital Signs: 08:40 BP 108 / 96; Pulse 77; Resp 18; Temp 97.6; Pulse Ox 98% on R/A; Weight 127.01 kg; ll1 Height 5 ft. 2 in. ; Pain 8/10; 09:22 BP 132 / 86; ll1 08:40 Body Mass Index 51.21 (127.01 kg, 157.48 cm) ll1 08:40 Pain Scale: Adult ll1 ED Course: 08:33 Patient arrived in ED. mr 08:38 Arm band placed on Patient placed in an exam room, on a stretcher. ll1 08:50 Jose Ibarra PA is PHCP. cp 08:50 Sacha Arredondo MD is Attending Physician. cp 08:51 Triage completed. ll1 09:13 SARS RAPID Sent. em1 09:13 Influenza Screen (a \T\ B) Sent. em1 09:13 Strep Sent. em1 09:15 Adi Valles, CINDI is Primary Nurse. ll1 09:25 Patient has correct armband on for positive identification. Call light in reach. ER ll1 procedures and process. Administered Medications: 09:22 Drug: Tessalon Perle PO 200 mg PO once Route: PO; ll1 09:22 Drug: Ibuprofen PO 800 mg PO once Route: PO; ll1 Medication: 09:25 VIS not applicable for this client. ll1 Outcome: 10:11 Discharge ordered by . cp 10:33 Patient left the ED. rs5 Signatures: Akua Stephen, Reg Reg mr Jason, Tremayne em1 Jose Ibarra PA PA cp Lewis, Lynsay, RN RN ll1 Rusty Daly RN RN rs5
--- NOTE | 2023-09-29 10:12 | EDPHYS ---
Physician Documentation [facility] Name: Peace Ring Age: 23 yrs Sex: Female : 2000 Arrival Date: 09/29/2023 Time: 08:31 Bed 20 Private MD: ED Physician Sacha Arredondo HPI: 09/28 09:00 This 23 yrs old Female presents to ER via Ambulatory with complaints of Cough, Ear Pain.cp 09:00 The patient or guardian reports cough, that is intermittent. cp 09:00 Onset: The symptoms/episode began/occurred 3 day(s) ago. cp 09:00 Severity of symptoms: in the emergency department the symptoms are unchanged, despite home interventions. Associated signs and symptoms: Pertinent positives: chest pain, with cough, earache, fever, sore throat, Pertinent negatives: diarrhea, vomiting. Historical: - Allergies: 08:46 No Known Drug Allergies; ll1 - PMHx: 08:46 Depression; Diabetes - NIDDM; Anxiety; dyslipidemia; polycystic ovarian syndrome; ll1 - PSHx: 08:46 hernia repair; Tonsillectomy; tubes in Ears; Cholecystectomy; ll1 - Immunization history:: Adult Immunizations up to date. - Infectious Disease History:: Denies. - Social history:: Smoking status: Reported history of juuling and/or vaping. ROS: 09:05 Constitutional: Negative for fever, poor PO intake, cp 09:05 Eyes: Negative for injury, pain, redness, and discharge, cp 09:05 ENT: Positive for ear pain, sore throat, Negative for drainage from ear(s), difficulty swallowing, difficulty handling secretions, 09:05 Cardiovascular: Negative for chest pain, 09:05 Respiratory: Positive for cough, "sounds productive", Negative for wheezing, 09:05 Abdomen/GI: Negative for abdominal pain, vomiting, diarrhea, constipation, 09:05 Neuro: Negative for altered mental status, headache, syncope, weakness, 09:05 All other systems are negative, Exam: 09:10 Constitutional: The patient appears in no acute distress, alert, awake, non-toxic, well cp developed, well nourished, obese, 09:10 Head/Face: Normocephalic, atraumatic. cp 09:10 Eyes: Periorbital structures: appear normal, Conjunctiva: normal, no exudate, no injection, Sclera: no appreciated abnormality, Lids and lashes: appear normal, bilaterally, 09:10 ENT: External ear(s): are unremarkable, Ear canal(s): are normal, clear, TM's: erythema, that is moderate, bilaterally, Nose: is normal, Mouth: Lips: moist, Oral mucosa: moist, Posterior pharynx: Airway: no evidence of obstruction, patent, Tonsils: with erythema, no enlargement, no exudate, swelling, is not appreciated, erythema, that is moderate, 09:10 Chest/axilla: Inspection: normal, 09:10 Cardiovascular: Rate: normal, Rhythm: regular, cp 09:10 Respiratory: the patient does not display signs of respiratory distress, Respirations: normal, no use of accessory muscles, no retractions, labored breathing, is not present, Breath sounds: decreased breath sounds, are not appreciated, stridor, is not appreciated, + upper airway congestion. wheezing: is not appreciated, 09:10 Abdomen/GI: Inspection: obese 09:10 Skin: no rash present. Vital Signs: 08:40 BP 108 / 96; Pulse 77; Resp 18; Temp 97.6; Pulse Ox 98% on R/A; Weight 127.01 kg; ll1 Height 5 ft. 2 in. ; Pain 8/10; 09:22 BP 132 / 86; ll1 08:40 Body Mass Index 51.21 (127.01 kg, 157.48 cm) ll1 08:40 Pain Scale: Adult ll1 MDM: 08:51 Patient medically screened. cp 09:00 Differential Diagnosis: Bronchitis Influenza Pharyngitis Otitis Media Viral Syndrome cp Pneumonia. 10:10 Data reviewed: vital signs, nurses notes, lab test result(s), and as a result, I will cp discharge patient. 10:10 I considered the following discharge prescriptions or medication management in the emergency department Medications were administered in the Emergency Department. See MAR. Counseling: I had a detailed discussion with the patient and/or guardian regarding the historical points, exam findings, and any diagnostic results supporting the discharge/admit diagnosis, lab results, to return to the emergency department if symptoms worsen or persist or if there are any questions or concerns that arise at home. Response to treatment: the patient's symptoms have mildly improved after treatment, and as a result, I will discharge patient. 09/28 08:58 Order name: Strep cp 09/28 08:58 Order name: Influenza Screen (a \\T\\ B) cp 09/28 08:58 Order name: SARS RAPID cp 09/28 09:42 Order name: Throat Culture EDMS Administered Medications: 09:22 Drug: Tessalon Perle PO 200 mg PO once Route: PO; ll1 09:22 Drug: Ibuprofen PO 800 mg PO once Route: PO; ll1 Disposition: 11:14 Co-signature as Attending Physician, Sacha Arredondo MD I reviewed the patient's care rt provided by the Advanced Practice Provider and agree with the diagnosis and treatment plan. Disposition Summary: 09/29/23 10:11 Discharge Ordered Notes: Location: Home cp Problem: new cp Symptoms: have improved cp Condition: Stable cp Diagnosis - Otitis media, unspecified, bilateral cp - Cough cp - Acute pharyngitis, unspecified cp Followup: cp - With: Private Physician - When: 2 - 3 days - Reason: Worsening of condition Discharge Instructions: - Discharge Summary Sheet cp - Otitis Media, Adult cp - Pharyngitis cp - Sore Throat cp - Cough, Adult cp Forms: - Medication Reconciliation Form cp - Antibiotic Education cp - Prescription Opioid Use cp - Patient Portal Instructions cp - Leadership Thank You Letter cp - Work release form rs5 Prescriptions: - Bromfed DM 2-30-10 mg/5 mL Oral syrup - administer 10 milliliter ORAL route every 6 hours As needed as needed for cold cp symptoms; 240 milliliter; Refills: 0, Product Selection Permitted - albuterol sulfate 90 mcg/actuation Inhalation HFA Aerosol Inhaler - inhale 1 puff INHALATION route every 4-6 hours; 1 unit; Refills: 0, Product cp Selection Permitted - Augmentin 875-125 mg Oral Tablet - take 1 tablet ORAL route every 12 hours for 10 days; 20 tablet; Refills: 0, cp Product Selection Permitted Signatures: Dispatcher [employer] EDMS Jose Ibarra PA PA cp Lewis, Lynsay, RN RN ll1 Sacha Arredondo MD MD rt
[2023-09-29 11:02] VITALS: BP 132/86; TEMP 97.6; O2SAT 98
== END 2023-09-29 10:33 | disposition home or self-care (01) ==
LOC: ER 08:31
DX: H66.93 Otitis media, unspecified, bilateral (principal); R05.9 Cough, unspecified; J02.9 Acute pharyngitis, unspecified; Z11.52 Encounter for screening for COVID-19
CPT/HCPCS: 36415; 87070; 87081; 87804; 87811; 99283

== ENCOUNTER 2024-06-04 13:37 | Emergency (ER) | payer SELFPAY, OTHER ==
--- NOTE | 2024-06-04 14:33 | RAD REPORT ---
EXAM: Foot Right 3 View HISTORY: PAIN COMPARISON: None FINDINGS: Bones: No acute fracture identified. Alignment:No significant malalignment. Degenerative changes:None significant. Other: Punctate foreign body between the first and second toes which may be along the skin surface. IMPRESSION: No evidence of acute osseous abnormality involving the imaged foot.
[2024-06-04] MEDS ORDERED: KETOROLAC 30 MG/ML INJ ONE (14:38)
[2024-06-04] MEDS ORDERED: CYCLOBENZAPRINE 10 MG TAB ONE (14:39)
[2024-06-04 14:50] LABS: Specific Gravity 1.026 (1.005-1.030)
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
[2024-06-04 15:59] VITALS: TEMP 97.3; O2SAT 100
[2024-06-04 16:03] VITALS: BP 138/95
== END 2024-06-04 15:49 | disposition home or self-care (01) ==
LOC: ER 13:37
DX: R07.9 Chest pain, unspecified (principal); M54.2 Cervicalgia; V47.5XXA Car driver injured in collision with fixed or stationary object in traffic accident, initial encounter
CPT/HCPCS: 71250; 72125; 74176; 81025; 96372; 99285